=== PATIENT | male | born 1980 | race Caucasian/White ===

== ENCOUNTER 2017-06-12 12:04 | Day surgery (SDC) | payer OTHER ==
[2017-06-12] MEDS ORDERED: BUPIVACAINE 0.5% 30 ML SDV ONE (12:33)
[2017-06-12] MEDS ORDERED: ceFAZolin 2 GM/DEXTROSE 100 ML IV ONE (12:43)
--- NOTE | 2017-06-12 12:47 | PDHPUP ---
History & Physical Update H&P update statement: This history and physical update is based on an assessment of the patient which was completed after admission or registration (within 24 hours), but prior to the surgery/procedure. H&P update: H&P reviewed & patient examined, no change in patient's condition since H&P completed
[2017-06-12] MEDS ORDERED: MIDAZOLAM 2 MG/2 ML VIAL IVP ONE (12:51)
--- NOTE | 2017-06-12 12:54 | PDANEPAE ---
ANE History of Present Illness 36 yo with elbow pain ANE Past Medical History - Cardiovascular History Hx Hypertension: No Hx Arrhythmias: No Hx Chest Pain: No Hx Coronary Artery / Peripheral Vascular Disease: No Hx CHF / Valvular Disease: No Hx Palpitations: No Cardiovascular History Comment: on Lipitor - Pulmonary History Hx COPD: No Hx Asthma/Reactive Airway Disease: No Hx Recent Upper Respiratory Infection: No Hx Oxygen in Use at Home: No Hx Sleep Apnea: No Sleep Apnea Screening Result - Last Documented: Negative - Neurologic History Hx Cerebrovascular Accident: No Hx Seizures: No Hx Dementia: No - Endocrine History Hx Diabetes: No - Renal History Hx Renal Disorders: No - Liver History Hx Hepatic Disorders: No - Neurological & Psychiatric Hx Hx Neurological and Psychiatric Disorders: No - Cancer History Hx Cancer: No - Congenital Disorder History Hx Congenital Disorders: No - GI History Hx Gastrointestinal Disorders: Yes Gastrointestinal History Comment: heartburn - Other Health History Other Health History: L elbow soreness at full extension -Epicondylitis;. Allergic to pollen - Chronic Pain History Chronic Pain: No - Surgical History Prior Surgeries: R radius ORIF ANE Review of Systems - Exercise capacity METS (RN): 4 METS ANE Patient History - Allergies Allergies/Adverse Reactions: No Known Allergies Allergy (Unverified 06/10/17 10:24) - Home Medications Home Medications: Atorvastatin Calcium 06/10/17 [Last Taken 06/11/17 07:00] Levocetirizine Dihydrochloride 06/10/17 [Last Taken 06/11/17 20:00] Omeprazole 06/10/17 [Last Taken 06/12/17 08:00] - NPO status NPO Status: no food or drink >8 hours - Anes Hx Anes Hx: no prior problems - Smoking Hx Smoking Status: Never smoked ANE Labs/Vital Signs - Vital Signs Height: 177.8 cm Weight: 81.647 kg ANE Physical Exam - Airway Neck exam: FROM Mallampati Score: Class 1 Mouth exam: normal dental/mouth exam - Pulmonary Pulmonary: no respiratory distress, clear to auscultation - Cardiovascular Cardiovascular: regular rate and rhythym - ASA Status ASA Status: I ANE Anesthesia Plan Anesthesia Plan: GA w LMA
[2017-06-12] MEDS ORDERED: MIDAZOLAM 2 MG/2 ML VIAL ONE (12:58)
[2017-06-12] MEDS ORDERED: fentaNYL 100 MCG/2 ML INJ ONE ×2 (13:20→14:54)
[2017-06-12] MEDS ORDERED: PROPOFOL 200 MG/20 ML VIAL ONE (13:20)
[2017-06-12] MEDS ORDERED: LIDOCAINE 2% JELLY 5 ML TUBE ONE (13:22)
[2017-06-12] MEDS ORDERED: LIDOCAINE 2% 5 ML SDV ONE (13:24)
[2017-06-12] MEDS ORDERED: fentaNYL 100 MCG/2 ML INJ IVP PRN (13:33)
[2017-06-12] MEDS ORDERED: PROMETHAZINE HCL 25 MG/ML INJ IVP PRN (13:33)
[2017-06-12] MEDS ORDERED: NALOXONE HCL 0.4 MG/ML INJ IVP PRN (13:33)
[2017-06-12] MEDS ORDERED: ONDANSETRON 4 MG/2 ML VIAL IVP PRN (13:33)
[2017-06-12] MEDS ORDERED: ONDANSETRON 4 MG/2 ML VIAL ONE (14:19)
[2017-06-12] MEDS ORDERED: DEXAMETHASONE 4 MG/ML VIAL ONE (14:19)
--- NOTE | 2017-06-12 14:35 | POSTANESTH ---
Post Anesthetic Evaluation Cardiovascular Status: Normal, Stable Respiratory Status: Normal, Stable Level of Consciousness/Mental Status: Can Participate in Eval, Alert and Oriented Pain Control: Adequate, Prn Tx Ordered Nausea/Vomiting Control: Adequate, Prn Tx Ordered Complications Possibly Related to Anesthesia: None Noted
--- NOTE | 2017-06-12 14:38 | POSTOPPROG ---
Post Op Note Date of Operation: 06/12/17 Surgeon: Dejon Reyes Anesthesiologist: Asim Warm Anesthesia: LMA Pre-op Diagnosis: Left common extensor origin rupture Post-op Diagnosis: same Indication: persistent pain Procedure: Lateral epicondylar bone spur excision and common extensor origin repair Findings: common extensor tendon degeneration and partial rupture Inf/Abcess present in the surg proc area at time of surgery?: No Depth: Deep Incisional (Fascial) EBL: Minimal Total fluids administered: 800cc Specimen(s): no
[2017-06-12 14:52] VITALS: TEMP 97.9
--- NOTE | 2017-06-12 15:03 | GOP ---
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 POSTOPERATIVE DIAGNOSIS: Chronic left lateral elbow pain with common extensor origin partial ruptur e and degenerative change. PROCEDURE PERFORMED: Left lateral epicondylar bone spur excision, debridement, and then repair usin g sutures to bone of common extensor origin lateral aspect left elbow. FINDINGS: INDICATIONS: Persistent pain lateral aspect of the elbow not improving with non-operative managemen t. Positive MRI study and it was felt that this point that surgical repair was a good option for hi m. DESCRIPTION OF PROCEDURE: Under general anesthesia, the patient's left arm was prepped and draped i n the usual fashion and arm tourniquet was applied at 250 mmHg. Longitudinal incision was made from 2 inches distal to 1 inch proximal to the lateral epicondyle. Skin and subcutaneous tissue was ref lected. The lateral epicondylar bursa was split longitudinally and reflected. Common extensor orig in was opened at the interval between the extensor carpi radialis longus and brevis, and the common extensor origin was elevated from the lateral epicondyle. The degenerate portion of the common exte nsor origin was identified and instead of being the opalescent appearance of tendon, there was a gre y granular appearance and also fatty tissue between some of the tendon bundles. The scar tissue and fatty tissue was removed and healthy tendon tissue remained. There was a traction bone spur at the lateral aspect of the elbow which had formed due to slow but sure separation of the common extensor origin from bone and that traction bone spur was excised using a rongeur, creating a nice smooth krueger rface of healthy cancellous bone. Then using a suture through drill holes technique, the common ext ensor origin was repaired to the cancellous bone with 0 Nurolon suture. Four of these sutures were placed and then some additional sutures were placed in order to better approximate the common origin to the lateral epicondylar area. The extensor carpi radialis longus was sutured over the common or igin, this overlap reinforcing the extensor tendon repair. Then the lateral epicondylar bursa was r epaired, this also with 2-0 Vicryl and then subcutaneous tissue was closed with 4-0 PDS, and skin cl osed with horizontal mattress sutures of 5-0 Prolene. 0.5% plain Marcaine was instilled in the oper ative area for postoperative pain management and then a bulky soft pressure dressing was applied, fo llowed by fiberglass sugar-tong splint held in place with Blayne bandages. He tolerated the procedure well. There were no complications. He was brought from the operating ro om for recovery room in good condition. Given detailed postoperative instructions. Prior to discha rge, a prescription for Percocet and Keflex was provided. He had been given 2 g of Ancef intravenou sly prior to commencement of surgery. Followup arrangements in the office for about a week postop f or dressing and suture removal, and above-elbow cast application for 3 additional weeks. /[id number]/MODL
[2017-06-12] MEDS ORDERED: OXYCODONE/APAP 5/325 TAB PO ONE (15:35)
[2017-06-12 16:19] VITALS: RESP 13
[2017-06-12 16:50] VITALS: BP 122/78; PULSE 76; O2SAT 93
== END 2017-06-12 16:45 | disposition home or self-care (01) ==
LOC: FSGY 12:04
PROVIDERS: ATTEND Specialist
PROC: 0LM30ZZ Reattachment of Right Upper Arm Tendon, Open Approach (ICD-10-PCS; principal; 2017-06-12 13:00)
PROC: 0RBM0ZZ Excision of Left Elbow Joint, Open Approach (ICD-10-PCS; principal; 2017-06-12 13:00)
DX: M77.12 Lateral epicondylitis, left elbow (principal); M66.222 Spontaneous rupture of extensor tendons, left upper arm; M25.722 Osteophyte, left elbow; M25.522 Pain in left elbow
CPT/HCPCS: J0690; J1100; J2250; J2405; J2704; J3010